=== PATIENT | female | born 1965 | race Caucasian/White ===

== ENCOUNTER 2018-09-08 01:01 | Emergency (ER) | payer OTHER ==
[~2018-09-08] VITALS: Ht 160 cm; Wt 59.0 kg
[2018-09-08] MEDS ORDERED: CLONIDINE0.1 PO (01:13)
[2018-09-08] MEDS ORDERED: REMERON15 MG PO (01:14)
[2018-09-08 02:52] VITALS: BP 120/82
== END 2018-09-08 02:53 | disposition home or self-care (01) ==
LOC: ER 01:01
DX: R04.0 Epistaxis (principal)